=== PATIENT | female | born 1940 | race Two or more races ===

== ENCOUNTER 2023-04-19 20:04 | Emergency (ER) | payer MEDICARE, MEDICAID ==
[~2023-04-19] VITALS: Ht 157.5 cm; Wt 50.0 kg
[2023-04-19 20:55] VITALS: PULSE 50; RESP 13; O2SAT 100
[2023-04-19] MEDS: SODIUM CHLORIDE 0.9% 1,000 ML IV ONE (23:29)
[2023-04-19] MEDS: ACETAMINOPHEN 325 MG TAB PO ONE (23:30)
[2023-04-19] MEDS: levETIRAcetam 1000 mg/100ml 100 ML IV ONE (23:35)
[2023-04-19 23:51] LABS: Alanine Aminotransferase 13 U/L (7-40); Albumin 3.6 g/dL (3.2-4.8); Alkaline Phosphatase 93 U/L (46-116); Anion Gap 6 (5-15); Aspartate Aminotransferase 28 U/L (13-40); BUN/Creatinine Ratio 13.4 (10.0-20.0); Blood Urea Nitrogen 9 mg/dL (9-23); Calcium 8.7 mg/dL (8.7-10.4); Carbon Dioxide 23 mmol/L (20-30); Chloride 111 mmol/L (98-107); Glucose 99 mg/dL (74-106); Magnesium 2.1 mg/dL (1.6-2.6); Potassium 4.6 mmol/L (3.5-5.1); Sodium 140 mmol/L (136-145)
[2023-04-19 23:52] LABS: Bilirubin, Total 0.3 mg/dL (0.2-1.0); Total Protein 6.5 g/dL (5.7-8.2)
[2023-04-20 00:03] LABS: Blood Alcohol 4.1 mg/dL (<10)
[2023-04-20] MEDS: hydrALAZINE HCL 20 MG/ML VL IV ONE (00:29)
[2023-04-20 00:34] VITALS: BP 136/65; PULSE 75; RESP 24; TEMP 98.2; O2SAT 94
== END 2023-04-20 00:44 | disposition short-term general hospital (02) ==
LOC: ER 20:04 → EDBD 20:04 → ER 04-20 00:41
DX: S06.5X0A Traumatic subdural hemorrhage without loss of consciousness, initial encounter (principal); R07.89 Other chest pain; R10.9 Unspecified abdominal pain; W19.XXXA Unspecified fall, initial encounter; Y93.89 Activity, other specified; Y92.89 Other specified places as the place of occurrence of the external cause; Y99.8 Other external cause status
CPT/HCPCS: 36415; 70450; 71045; 71250; 72125; 74176; 80053; 80320; 83605; 83735; 84484; 87040; 93005; 96365; 96375; 99285; J0360; J1953; 87077